=== PATIENT | female | born 1960 | race Caucasian/White ===

== ENCOUNTER → 2024-02-07 18:02 | Outpatient (ROUT) | payer OTHER, SELFPAY | PROVIDERS: Visit Provider Dermatology | DX: L08.9 Local infection of the skin and subcutaneous tissue, unspecified (principal) | CPT/HCPCS: 87070; 87075; 87077; 87147; 87186; 87205 ==

== ENCOUNTER 2024-02-23 15:07 | Inpatient (IN) | payer OTHER, SELFPAY ==
[2024-02-23] VITALS (28 sets, daily range): BP systolic 134–201; BP diastolic 65–105; PULSE 96–111; RESP 10–39; TEMP 31–36.8; O2SAT 87–98; BMI 51.5
--- NOTE | 2024-02-23 15:32 | DI.RAD.S_ITS ---
PROCEDURE: XR CHEST 1V INDICATIONS: Shortness of breath TECHNIQUE: One view of the chest was acquired. COMPARISON: None. FINDINGS: Surgical changes and devices: Partially visualized ACDF. Lungs and pleura: Prominent interstitial markings in the mid and lower lung queen. No significant pleural effusion or pneumothorax Mediastinum: Mediastinal contours appear normal. Heart size is enlarged. Bones and chest wall: No suspicious bony lesions. Overlying soft tissues appear unremarkable. IMPRESSION: Cardiomegaly and prominent interstitial markings, concerning for pulmonary edema. Dictated by: Anant Richard M.D. on 02/23/2024 at 15:10 Approved by: Anant Richard M.D. on 02/23/2024 at 15:11
--- NOTE | 2024-02-23 15:37 | EKG_ITS ---
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
[2024-02-23 15:52] LABS: Add Manual Diff / Slide Review NO; Basophils Absolute Auto 0 /uL (0-100); Basophils Percent Auto 0.2 % (0-2); Eosinophils Absolute Auto 0 /uL (0-450); Eosinophils Percent Auto 0.5 % (2-4); Hematocrit 34.2 % (36-46); Hemoglobin 11.5 g/dL (12.0-16.0); Lymphocytes Absolute Auto 1400 /uL (1100-4500); Lymphocytes Percent Auto 14.9 % (25-40); Mean Corpuscular HGB Conc 33.5 % (30-36); Mean Corpuscular Hemoglobin 30.6 PG (26-34); Mean Corpuscular Volume 91.4 fL (80-100); Monocytes Absolute Auto 600 /uL (0-900); Monocytes Percent Auto 6.1 % (3-14); Neutrophils Absolute Auto 7400 /uL (1500-7000); Neutrophils Percent Auto 78.3 % (50-75); Platelet Count 288 X10^3/uL (150-400); Red Blood Cell Count 3.74 X10^6/uL (4.0-5.2); Red Cell Distribution Width 14.3 % (11.6-14.8); White Blood Cell Count 9.4 X10^3/uL (4.5-11.0)
--- NOTE | 2024-02-23 15:57 | PC.NURSE ---
Patient pulse ox dropped to 87% on room air. This RN went to patient room and patient was resting with eyes closed. Patient states that they do have sleep apnea. This RN placed nasal cannula on patient and started oxygen at 2L. Provider informed.
[2024-02-23 15:58] LABS: INR 1.6 (0.9-1.3); Prothrombin Time 18.6 SECONDS (9.4-12.5)
[2024-02-23 16:02] LABS: Lactate (Lactic Acid) 2.4 mmol/L (0.7-2.1)
[2024-02-23 16:18] LABS: Alanine Aminotransferase 21 IU/L (<35); Albumin 3.7 g/dL (3.5-5.0); Albumin Globulin Ratio 1.4 (1.0-2.8); Alkaline Phosphatase 91 U/L (38-126); Aspartate Aminotransferase 28 IU/L (14-36); BUN Creatinine Ratio 20.5 (6-22); Bilirubin Total 1.1 mg/dL (0.2-1.3); Blood Urea Nitrogen 26 mg/dL (7-17); Calcium 8.2 mg/dL (8.4-10.2); Carbon Dioxide 28 mmol/L (22-32); Chloride 105 mmol/L (98-107); Estimated Glomerular Filt Rate 48 mL/min (>60); Globulin 2.7 g/dL (1.7-4.1); Glucose 149 mg/dL (80-110); HEMOLYSIS < 15 (0-50); Potassium 4.7 mmol/L (3.4-5.1); Sodium 139 mmol/L (137-145); Total Protein 6.4 g/dL (6.3-8.2)
[2024-02-23 16:30] LABS: NT-proBNP (BNP-Adult 18+) 5330 pg/mL (<125); Troponin I < 0.012 ng/mL (0.01-0.034)
[2024-02-23] MEDS: NITROGLYCERIN 0.4 MG SL TAB SL (16:49)
[2024-02-23] MEDS: FUROSEMIDE 60 MG in SODIUM CHLORIDE 0.9% 50 ML 112 MG IV (16:50)
--- NOTE | 2024-02-23 17:12 | ED.GENADULT ---
HPI - General Adult General Chief complaint: Shortness of Breath/Dyspnea Stated complaint: shortness of breath Time Seen by Provider: 02/23/24 16:31 Source: patient, RN notes reviewed and old records reviewed Mode of arrival: Wheelchair Limitations: no limitations History of Present Illness HPI narrative: 63-year-old with history of atrial fibrillation, prior cardioversion and ablation, CHF, hypertension, dyslipidemia who presents with increasing shortness of breath starting Sunday night in his last few days. Patient states it significantly worsened over the past 24 hours. She denies any chest pain currently but states she would some epigastric discomfort earlier. Denied any radiation to neck back abdomen or elsewhere. Denies fevers. Has not had a cough which is chronic and nonproductive. No cold cough or congestion symptoms otherwise. No nausea or vomiting no issues with bowel movements. Patient has history of chronic edema and skin infections with MRSA. She states she has had persistent edema in her lower extremities. She is currently on an oral antibiotic for MRSA. Patient states she has had prior cardioversions and ablations. She has been in atrial fibrillation for the past year or more. She states she was on flecainide but had difficulty with breathing and stopped it. She is currently taking atenolol, spironolactone, magnesium and potassium, torsemide, losartan, atorvastatin, daily medication for incontinence and omeprazole. States only surgeries were cardiac ablation she denies any cardiac stents or other cardiac interventions. States prior knee surgery in her 20s. Has not allergy to narcotics does not tolerate them. Patient states no tobacco, no regular alcohol, no recreational drugs. Related Data Home Medications Medication Instructions Recorded Confirmed atenolol 50 mg tablet 50 mg PO DAILY 02/23/24 02/23/24 atorvastatin 40 mg tablet 40 mg PO DAILY 02/23/24 02/23/24 dabigatran etexilate 150 mg 150 mg PO BID 02/23/24 02/23/24 capsule (Pradaxa) losartan 50 mg tablet 50 mg PO BID 02/23/24 02/23/24 potassium chloride 10 mEq 10 meq PO 4XD 02/23/24 02/23/24 tablet,extended release spironolactone 50 mg tablet 25 mg PO DAILY 02/23/24 02/23/24 torsemide 20 mg tablet See Rx Instructions .Route .COMPLEX 02/23/24 02/23/24 Allergies Allergy/AdvReac Type Severity Reaction Status Date / Time flecainide Allergy Difficulty Verified 02/23/24 15:45 Breathing morphine Allergy Redness of Verified 02/23/24 15:45 Skin oxycodone Allergy Redness of Verified 02/23/24 15:45 Skin XU Inhibitors AdvReac Cough Verified 02/23/24 15:45 adhesive AdvReac Redness of Verified 02/23/24 15:45 Skin Review of Systems Review of Systems ROS Unobtainable: All systems reviewed & are unremarkable except as noted in HPI and below Patient History Social History Smoking Status: Never smoker Smoking Status: Never smoker alcohol intake frequency: other Substance Use Type: does not use Exam Narrative Exam Narrative: GENERAL: Alert and oriented x three, obese female in moderate distress. HEENT: Head normocephalic, atraumatic, EOMI, pupils reactive, face symmetric, moist mucous membranes NECK: Supple, full range of motion CARDIOVASCULAR: Irregularly irregular heart rate between 90s and 100 rate and rhythm without murmurs, rubs or gallops. Positive for JVD. Positive for 2+ edema bilateral lower extremities. Patient appears to have some chronic venous stasis changes bilaterally. Some mild erythema bilateral anterior shins. RESPIRATORY: Breath sounds equal bilaterally, crackles bilateral bases, no rhonchi, patient does have some tachypnea. Mild accessory use no subcostal or intercostal retractions. Patient's speaks in 3-5 words. ABDOMEN: Soft, nontender. Normoactive bowel sounds all 4 quadrants. No guarding or rebound, rigidity, no mass : No CVA tenderness EXTREMITIES: Normal range of motion. Neurovascularly intact NEUROLOGICAL: Cranial nerves II through XII grossly intact. Moving all extremities SKIN: Warm, dry, no petechiae, no rashes or lesions. Initial Vital Signs Initial Vital Signs: Vital Signs Temperature 98 F 02/23/24 15:32 Pulse Rate 111 H 02/23/24 15:32 Respiratory Rate 18 02/23/24 15:32 Blood Pressure 191/92 H 02/23/24 15:32 Pulse Oximetry 94 02/23/24 15:32 Oxygen Delivery Method Room Air 02/23/24 15:32 Course Orders Ordered: ED Orders 02/23/24 15:32 XR chest 1V Stat EKG-12 Lead Stat Measure peak expiratory flow ONCE RT Consult Eval and Treat NOW 02/23/24 15:40 Complete Blood Count AUTO DIFF Stat Comprehensive Metabolic Panel Stat Lactate (Lactic Acid) Stat NT-proBNP (BNP-Adult 18+) Stat Prothrombin Time INR Stat Troponin I Stat Discontinued Medications Furosemide 60 mg/ Sodium (Chloride) 56 mls @ 112 mls/hr IV NOW ONE Stop: 02/23/24 16:33 Last Infusion: 02/23/24 17:38 Dose: Infused Documented By: Admin: 02/23/24 16:50 Dose: 112 mls/hr Documented By: RB Nitroglycerin (Nitroglycerin 0.4 Mg Sl Tab) 0.4 mg SL NOW ONE Stop: 02/23/24 16:33 Last Admin: 02/23/24 16:49 Dose: 0.4 mg Documented By: RB Vital Signs Vital signs: Vital Signs - 8 hr 02/23/24 15:32 02/23/24 15:40 02/23/24 15:45 Temperature 98 F Pulse Rate 111 H 97 H 98 H Respiratory Rate 18 34 H 31 H Blood Pressure 191/92 H Pulse Oximetry 94 93 94 Oxygen Delivery Method Room Air Oxygen Flow Rate Fraction of Inspired Oxygen 02/23/24 15:50 02/23/24 15:55 02/23/24 16:00 Temperature Pulse Rate 99 H 97 H 98 H Respiratory Rate 31 H 26 H 30 H Blood Pressure Pulse Oximetry 91 87 L 96 Oxygen Delivery Method Room Air Nasal Cannula Oxygen Flow Rate 2 Fraction of Inspired Oxygen 02/23/24 16:01 02/23/24 16:01 02/23/24 16:15 Temperature Pulse Rate 99 H 100 H Respiratory Rate 29 H 28 H Blood Pressure 201/81 H Pulse Oximetry 96 95 Oxygen Delivery Method Nasal Cannula Nasal Cannula Oxygen Flow Rate 2 2 Fraction of Inspired Oxygen 02/23/24 16:16 02/23/24 16:16 02/23/24 16:30 Temperature Pulse Rate 99 H 99 H Respiratory Rate 27 H 28 H Blood Pressure 196/79 H Pulse Oximetry 96 96 Oxygen Delivery Method Nasal Cannula Nasal Cannula Oxygen Flow Rate 2 Fraction of Inspired Oxygen 02/23/24 16:30 02/23/24 16:45 02/23/24 16:45 Temperature Pulse Rate 103 H Respiratory Rate 28 H Blood Pressure 190/78 H 178/83 H Pulse Oximetry 95 Oxygen Delivery Method Nasal Cannula Oxygen Flow Rate 2 Fraction of Inspired Oxygen 02/23/24 16:49 02/23/24 17:00 02/23/24 17:01 Temperature Pulse Rate 99 H 105 H Respiratory Rate 39 H Blood Pressure 178/83 H 180/70 H Pulse Oximetry 91 Oxygen Delivery Method Nasal Cannula Oxygen Flow Rate 2 Fraction of Inspired Oxygen 02/23/24 17:01 02/23/24 17:20 Temperature Pulse Rate 105 H Respiratory Rate 31 H Blood Pressure 174/80 H Pulse Oximetry 93 Oxygen Delivery Method Nasal Cannula Oxygen Flow Rate 2 Fraction of Inspired Oxygen 25 Medical Decision Making Lab Data 02/23/24 15:40 02/23/24 15:40 Labs: Lab Results 02/23/24 02/23/24 Range/Units 15:40 17:35 WBC 9.4 (4.5-11.0) X10^3/uL RBC 3.74 L (4.0-5.2) X10^6/uL Hgb 11.5 L (12.0-16.0) g/dL Hct 34.2 L (36-46) % MCV 91.4 (80-100) fL MCH 30.6 (26-34) PG MCHC 33.5 (30-36) % RDW 14.3 (11.6-14.8) % Plt Count 288 (150-400) X10^3/uL Neut % (Auto) 78.3 H (50-75) % Lymph % (Auto) 14.9 L (25-40) % [place] % (Auto) 6.1 (3-14) % Eos % (Auto) 0.5 L (2-4) % Baso % (Auto) 0.2 (0-2) % Neut # (Auto) 7400 H (9420-6966) /uL Lymph # (Auto) 1400 (5261-1148) /uL [place] # (Auto) 600 (0-900) /uL Eos # (Auto) 0 (0-450) /uL Baso # (Auto) 0 (0-100) /uL PT 18.6 H (9.4-12.5) SECONDS INR 1.6 H (0.9-1.3) Sodium 139 (137-145) mmol/L Potassium 4.7 (3.4-5.1) mmol/L Chloride 105 (98-107) mmol/L Carbon Dioxide 28 (22-32) mmol/L BUN 26 H (7-17) mg/dL Creatinine 1.27 H (0.52-1.04) mg/dL Estimated GFR 48 L (>60) mL/min BUN/Creatinine Ratio 20.5 (6-22) Glucose 149 H (80-110) mg/dL Lactate 2.4 H 1.8 (0.7-2.1) mmol/L Calcium 8.2 L (8.4-10.2) mg/dL Total Bilirubin 1.1 (0.2-1.3) mg/dL AST 28 (14-36) IU/L ALT 21 (<35) IU/L Alkaline Phosphatase 91 (38-126) U/L Troponin I < 0.012 (0.01-0.034) ng/mL NT-Pro-B Natriuret Pep 5330 H (<125) pg/mL Total Protein 6.4 (6.3-8.2) g/dL Albumin 3.7 (3.5-5.0) g/dL Globulin 2.7 (1.7-4.1) g/dL Albumin/Globulin Ratio 1.4 (1.0-2.8) Imaging Data Chest x-ray: Radiologist's Impression: Close Chest X-Ray (Signed) Anant Richard - 02/23/24 [place] [address] XRay Report Signed Patient: ALE HUERTAS MR#: [id number] : 1960 Acct:[id number] Age/Sex: 63 / F Date of Service: 02/23/24 Loc: ED Accession Number: [id number] Procedure: XR chest 1V Ordering Provider: Emily Robertson D.O. PROCEDURE: XR CHEST 1V INDICATIONS: Shortness of breath TECHNIQUE: One view of the chest was acquired. COMPARISON: None. FINDINGS: Surgical changes and devices: Partially visualized ACDF. Lungs and pleura: Prominent interstitial markings in the mid and lower lung queen. No significant pleural effusion or pneumothorax Mediastinum: Mediastinal contours appear normal. Heart size is enlarged. Bones and chest wall: No suspicious bony lesions. Overlying soft tissues appear unremarkable. IMPRESSION: Cardiomegaly and prominent interstitial markings, concerning for pulmonary edema. Dictated by: Anant Richard M.D. on 02/23/2024 at 15:10 Approved by: Anant Richard M.D. on 02/23/2024 at 15:11 ECG Data Attestation: I personally reviewed and interpreted this ECG as follows: Prior ECG tracings: not available for review Interpretation: AFib, rate of 99, QRS is 70 QTC 441. No prior for comparison. MDM Narrative Medical decision making narrative: 63-year-old female history atrial fibrillation, CHF patient used to be on flecainide but no longer has been in chronic atrial fibrillation. Patient appears to be clinically in CHF. She is hypertensive, AFib RVR with rate 90s to 100, tachypneic requiring 2 L O2 which is new. Patient states cardioversions in the longer work she is chronically in atrial fibrillation. Labs show white count of 9.4 hemoglobin of 11, platelets of 288, INR is 1.6, creatinine is 1.27 BUN 26 with otherwise appropriate electrolytes with a potassium of 4.7 sodium 139. Troponins less than 0.012, BNP is 5330. Chest x-ray shows cardiomegaly, prominent interstitial markings concerning for pulmonary edema. No significant pleural effusion or pneumothorax. EKG shows atrial fibrillation with rate in the 90s Patient received Lasix, sublingual nitro, work of breathing was moderate but discussed patient does use a CPAP normally and we will put her on BiPAP to see if this improves symptoms. Patient states she has no interest in cardioversions unless unstable. She is full code. Patient's follows with primary care outside facility follows with Cardiology through [facility]. Patient feels much improved on BiPAP she states her work of breathing feels much better. Spoke with Dr. Perry, hospitalist who accepts plan for ICU as patient is on BiPAP. Discharge Plan Departure Patient Disposition: Admitted as Observation Clinical Impression: Acute exacerbation of chronic heart failure, Atrial fibrillation Admit Date/Time: 02/23/24 17:46 Admit Provider: Joni Perry V
[2024-02-23 17:24] LABS: Reflexed Lactate in 2 Hours Y
[2024-02-23 17:58] LABS: Lactate 2HR (Lactic Acid Rflx) 1.8 mmol/L (0.7-2.1)
--- NOTE | 2024-02-23 18:24 | PM.HP.1 ---
History of Present Illness History of Present Illness Date Patient Seen: 02/23/24 Time Patient Seen: 17:30 Date of Onset of Symptoms: 02/22/24 Chief complaint: shortness of breath Narrative: 63-year-old woman history of chronic atrial fibrillation, status post prior cardioversion and ablation, congestive heart failure, hypertension hyperlipidemia presented with shortness of breath for the past 3 nights with associated lower extremity edema and orthopnea. She suspects dietary indiscretion around the 20 of February hol. She has had a recent MRSA infection for which she is taking an oral antibiotic. She denies chest pain, palpitations, lightheadedness, or syncope. She was evaluated in the emergency department and found to have clinical radiographic and laboratory findings consistent with congestive heart failure, with an oxygen saturation of 85% and labored breathing. She was placed on BiPAP and administer furosemide 60 mg intravenously with a brisk diuresis, and feeling significantly better. She is admitted for further management and evaluation [facility] Medical History (Updated 02/23/24 @ 18:33 by Joni Perry MD) Acute hypoxemic respiratory failure ISAURA (acute kidney injury) Obstructive sleep apnea Mixed hyperlipidemia Essential hypertension Chronic anticoagulation Chronic atrial fibrillation Social History Smoking Status: Never smoker Meds Home Medications and Allergies Home Medications Medication Instructions Recorded Confirmed Type atenolol 50 mg tablet 50 mg PO DAILY 02/23/24 02/23/24 History atorvastatin 40 mg tablet 40 mg PO DAILY 02/23/24 02/23/24 History dabigatran etexilate 150 mg 150 mg PO BID 02/23/24 02/23/24 History capsule (Pradaxa) losartan 50 mg tablet 50 mg PO BID 02/23/24 02/23/24 History potassium chloride 10 mEq 10 meq PO 4XD 02/23/24 02/23/24 History tablet,extended release spironolactone 50 mg tablet 25 mg PO DAILY 02/23/24 02/23/24 History torsemide 20 mg tablet See Rx Instructions .Route .COMPLEX 02/23/24 02/23/24 History Allergies Allergy/AdvReac Type Severity Reaction Status Date / Time flecainide Allergy Difficulty Verified 02/23/24 15:45 Breathing morphine Allergy Redness of Verified 02/23/24 15:45 Skin oxycodone Allergy Redness of Verified 02/23/24 15:45 Skin XU Inhibitors AdvReac Cough Verified 02/23/24 15:45 adhesive AdvReac Redness of Verified 02/23/24 15:45 Skin Review of Systems Review of Systems ROS: Yes All systems reviewed with the patient and are negative except as otherwise documented Exam Vital Signs (past 8 hours): - 02/23/24 15:32 02/23/24 15:40 02/23/24 15:45 Temperature 98 F Pulse Rate 111 H 97 H 98 H Respiratory Rate 18 34 H 31 H Blood Pressure 191/92 H Pulse Oximetry 94 93 94 Oxygen Delivery Method Room Air Oxygen Flow Rate Fraction of Inspired Oxygen 02/23/24 15:50 02/23/24 15:55 02/23/24 16:00 Temperature Pulse Rate 99 H 97 H 98 H Respiratory Rate 31 H 26 H 30 H Blood Pressure Pulse Oximetry 91 87 L 96 Oxygen Delivery Method Room Air Nasal Cannula Oxygen Flow Rate 2 Fraction of Inspired Oxygen 02/23/24 16:01 02/23/24 16:01 02/23/24 16:15 Temperature Pulse Rate 99 H 100 H Respiratory Rate 29 H 28 H Blood Pressure 201/81 H Pulse Oximetry 96 95 Oxygen Delivery Method Nasal Cannula Nasal Cannula Oxygen Flow Rate 2 2 Fraction of Inspired Oxygen 02/23/24 16:16 02/23/24 16:16 02/23/24 16:30 Temperature Pulse Rate 99 H 99 H Respiratory Rate 27 H 28 H Blood Pressure 196/79 H Pulse Oximetry 96 96 Oxygen Delivery Method Nasal Cannula Nasal Cannula Oxygen Flow Rate 2 Fraction of Inspired Oxygen 02/23/24 16:30 02/23/24 16:45 02/23/24 16:45 Temperature Pulse Rate 103 H Respiratory Rate 28 H Blood Pressure 190/78 H 178/83 H Pulse Oximetry 95 Oxygen Delivery Method Nasal Cannula Oxygen Flow Rate 2 Fraction of Inspired Oxygen 02/23/24 16:49 02/23/24 17:00 02/23/24 17:01 Temperature Pulse Rate 99 H 105 H Respiratory Rate 39 H Blood Pressure 178/83 H 180/70 H Pulse Oximetry 91 Oxygen Delivery Method Nasal Cannula Oxygen Flow Rate 2 Fraction of Inspired Oxygen 02/23/24 17:01 02/23/24 17:20 Temperature Pulse Rate 105 H Respiratory Rate 31 H Blood Pressure 174/80 H Pulse Oximetry 93 Oxygen Delivery Method Nasal Cannula Oxygen Flow Rate 2 Fraction of Inspired Oxygen 25 Fraction of Inspired Oxygen 25 Oxygen Delivery Method Nasal Cannula Oxygen Flow Rate 2 Narrative Exam Narrative: GENERAL: This is a well-nourished, well-developed patient, in moderate respiratory distress, wearing BiPAP mask, oxygen saturation 94% HEAD: Atraumatic. Normocephalic. No temporal or scalp tenderness. EYES: Pupils equal round and reactive. Extraocular motions intact. No scleral icterus. No injection or drainage. ENT: Mucous membranes pink and moist. NECK: Trachea midline. No JVD, bruits or lymphadenopathy. Supple, nontender, no meningeal signs. CARDIOVASCULAR: Irregularly irregular rhythm without murmurs, gallops, or rubs. RESPIRATORY: Labored breathing, diffuse crackles bilateral lower lobes to mid lung queen. GASTROINTESTINAL: Abdomen soft, non-tender, nondistended. EXTREMITIES: 2+ edema NEUROLOGIC: Alert, oriented, speech fluent, full upper and lower motor strength, no focal deficits evident. DERMATOLOGIC: No rashes or skin lesions. Objective ECG Impression: Atrial fibrillation at 99 beats per minute, low-voltage QRS, no acute ischemic changes Imaging Chest x-ray: Radiologist's impression: Cardiomegaly and prominent interstitial markings, concerning for pulmonary edema. Labs 02/23/24 15:40 02/23/24 15:40 Labs: Laboratory Results - last 24 hr 02/23/24 02/23/24 15:40 17:35 WBC 9.4 RBC 3.74 L Hgb 11.5 L Hct 34.2 L MCV 91.4 MCH 30.6 MCHC 33.5 RDW 14.3 Plt Count 288 Neut % (Auto) 78.3 H Lymph % (Auto) 14.9 L [place] % (Auto) 6.1 Eos % (Auto) 0.5 L Baso % (Auto) 0.2 Neut # (Auto) 7400 H Lymph # (Auto) 1400 [place] # (Auto) 600 Eos # (Auto) 0 Baso # (Auto) 0 PT 18.6 H INR 1.6 H Sodium 139 Potassium 4.7 Chloride 105 Carbon Dioxide 28 BUN 26 H Creatinine 1.27 H Estimated GFR 48 L BUN/Creatinine Ratio 20.5 Glucose 149 H Lactate 2.4 H 1.8 Calcium 8.2 L Total Bilirubin 1.1 AST 28 ALT 21 Alkaline Phosphatase 91 Troponin I < 0.012 NT-Pro-B Natriuret Pep 5330 H Total Protein 6.4 Albumin 3.7 Globulin 2.7 Albumin/Globulin Ratio 1.4 Assessment & Plan Assessment and plan (1) Acute exacerbation of chronic heart failure: Status: Acute (2) Acute hypoxemic respiratory failure: Status: Acute (3) Chronic atrial fibrillation: Status: Acute (4) Chronic anticoagulation: Status: Acute (5) ISAURA (acute kidney injury): Status: Acute (6) Essential hypertension: Status: Acute (7) Mixed hyperlipidemia: Status: Acute (8) Obstructive sleep apnea: Status: Acute Plan 63-year-old woman with chronic atrial fibrillation, congestive heart failure, hypertension, hyperlipidemia and sleep apnea presenting with acute onset congestive heart failure with acute hypoxic respiratory in the setting of recent dietary indiscretion and chronic peripheral edema requiring noninvasive BiPAP ventilator support. Plan: Admit to ICU Continue BiPAP Furosemide 40 mg IV every 8 hours Continue routine medications otherwise Echocardiogram Monitor serial cardiac enzymes Full code status. She states she wishes to avoid intubation. 60 minutes of critical care time is spent Time-Based Coding :: [TOTAL MINUTES] spent with patient and on the chart (including review of chart, obtaining history, exam, reviewing outside data, placing orders, documenting exam and treatment plan, and counseling patient) on [DATE]. PROFEE Charge Codes Critical Care: 93677
--- NOTE | 2024-02-23 18:33 | DI.ECHO.S_ITS ---
[place] [facility]---------+ [facility] : : [address] : : [place] : : [id number] : : Phone: [phone] Echocardiogram Report + + :Name: ALE HUERTAS Study Date: 02/24/2024 Height: 64 in : :[facility] ReadingLocation: Weight: 303 lb : : Gender: Female BSA: 2.3 m2 : :: 1960 Age: 63 yrs BP: 176/92 mmHg: :Reason For Study: CONGESTIVE HEART FAILURE : :Ordering Physician: MOISES, : :WEST Performed By: Teresita Beverly : :Referring: WEST DE LEON : + + Interpretation Summary 1) Normal left ventricular thickness, size, wall motion, and systolic function (EF 60-65%). 2) Normal right ventricular size and function. 3) No significant valvular abnormalities. 4) No prior Echo available for comparison. Procedure: A two-dimensional transthoracic echocardiogram with color flow and Doppler was performed. The study quality was technically adequate. There is no prior echocardiogram noted for this patient. The patient was in atrial fibrillation with heart rates between 87-104 bpm during the exam. Left Ventricle: The left ventricle is normal in size and wall thickness. The ejection fraction is estimated to be 60-65%. Left ventricular systolic function appears normal without focal wall motion abnormalities. Diastolic function could not be accurately assessed due to atrial fibrillation. Right Ventricle: The right ventricle is normal in size and function. Atria: The left atrial size is normal. Right atrial size is normal. There is no Doppler evidence for an interatrial shunt. Mitral Valve: The mitral valve is normal in structure and function. There is trace mitral regurgitation. Aortic Valve: The aortic valve is trileaflet. The aortic valve opens well. There is no aortic valve stenosis. No aortic regurgitation is present. Tricuspid Valve: The tricuspid valve is normal in structure and function. There is mild tricuspid regurgitation. The right ventricular systolic pressure is estimated to be at least 41 mmHg based on an estimated right atrial pressure of 3 mm Hg. Pulmonic Valve: The pulmonic valve is not well seen, but is grossly normal. There is no pulmonic valvular regurgitation. Great Vessels: The aortic root is normal size. The dimensions of the ascending aorta are normal. The IVC is of normal diameter and collapses greater than 50% with a sniff. This suggests a low right atrial pressure of 3 mm Hg. Pericardium/ Pleura There is no pericardial effusion. There is no pleural effusion. MMode/2D Measurements & Calculations LVIDd: 4.1 cm LVOT diam: 2.0 cm LVIDs: 2.8 cm Ao root diam: 2.4 cm FS: 32.7 % asc Aorta Diam: 3.3 cm IVSd: 0.91 cm LVPWd: 0.88 cm LV burgos. diameter/BSA (cm/m^2): 1.8 LV sys. diameter/BSA (cm/m^2): 1.2 LA A2 area: 16.8 cm2 RA long axis: 5.5 cm LA A4 area: 19.3 cm2 RA area: 20.4 cm2 LA length (vol): 5.7 cm RA vol: 64.5 ml LA vol: 48.5 ml RA : 27.6 ml/m2 LA vol index: 20.8 ml/m2 IVC diam: 1.5 cm RVD1 (basal): 3.8 cm TAPSE: 2.3 cm Doppler Measurements & Calculations Ao V2 max: 173.1 cm/sec LVOT Max Calixto: 103.5 cm/sec Ao V2 mean: 118.7 cm/sec LV V1 max P.3 mmHg Ao max P.0 mmHg LV V1 VTI: 17.6 cm Ao mean P.3 mmHg MARY(I,D): 1.8 cm2 Ao V2 VTI: 29.4 cm MARY(V,D): 1.8 cm2 sev ratio: 0.60 MARY indexed to BSA (cm^2/m^2): 0.78 MV E max calixto: 116.2 cm/sec TR max calixto: 310.0 cm/sec MV A max calixto: 0.83 cm/sec TR max P.4 mmHg MV E/A: 140.4 PA V2 max: 109.5 cm/sec Med Peak E' Calixto: 7.6 cm/sec PA V2 mean: 71.5 cm/sec E/E' med: 15.3 PA mean P.3 mmHg Lat Peak E' Calixto: 6.9 cm/sec PA pr(Accel): 25.9 mmHg E/E' lat: 16.8 E/e' average: 16.0 MV dec time: 0.23 sec SV(ALEYDA): 53.4 ml Reading Physician:12:08 PM
[2024-02-23 21:09] LABS: MRSA (Nasal) PCR DETECTED (Not Detect)
[2024-02-23] MEDS: POTASSIUM CHLORIDE 10 MEQ TAB PO (21:24)
[2024-02-23] MEDS: LOSARTAN 50 MG TABLET PO (21:24)
[2024-02-23] MEDS: FUROSEMIDE 40 MG/4 ML VIAL IV (21:24)
[2024-02-23] MEDS: methocarbamoL 500 MG TABLET PO (22:53)
[2024-02-24] VITALS (30 sets, daily range): BP systolic 132–202; BP diastolic 69–92; PULSE 90–109; RESP 18–33; TEMP 36.1–36.7; O2SAT 90–98; BMI 51.5
[2024-02-24] MEDS: FUROSEMIDE 40 MG/4 ML VIAL IV ×3 (04:37→20:58)
--- NOTE | 2024-02-24 06:14 | PC.NURSE ---
library clerical assistant RN note pt c/o of leg spasms overnight, robaxin ordered with relief, lasix as ordered, voiding large amts of clear yellow urine overnight, pt attempted to use bipap when sleeping but then took it off stating it made her feel smothered, 2L NC applied instead, O2 sats >92%
--- NOTE | 2024-02-24 06:25 | RT ---
pt took BiPAP off about midnight 02/24/24 is on 3L 95% and comfortable
[2024-02-24 06:29] LABS: Add Manual Diff / Slide Review NO; Basophils Absolute Auto 0 /uL (0-100); Basophils Percent Auto 0.5 % (0-2); Eosinophils Absolute Auto 100 /uL (0-450); Eosinophils Percent Auto 1.2 % (2-4); Hematocrit 33.4 % (36-46); Hemoglobin 11.4 g/dL (12.0-16.0); Lymphocytes Absolute Auto 1900 /uL (1100-4500); Lymphocytes Percent Auto 22.1 % (25-40); Mean Corpuscular HGB Conc 34.2 % (30-36); Mean Corpuscular Volume 90.7 fL (80-100); Monocytes Absolute Auto 700 /uL (0-900); Monocytes Percent Auto 7.8 % (3-14); Neutrophils Absolute Auto 5900 /uL (1500-7000); Neutrophils Percent Auto 68.4 % (50-75); Platelet Count 284 X10^3/uL (150-400); Red Blood Cell Count 3.69 X10^6/uL (4.0-5.2); White Blood Cell Count 8.6 X10^3/uL (4.5-11.0)
[2024-02-24 06:33] LABS: Blood Urea Nitrogen 21 mg/dL (7-17); Calcium 8.1 mg/dL (8.4-10.2); Carbon Dioxide 29 mmol/L (22-32); Chloride 99 mmol/L (98-107); Estimated Glomerular Filt Rate 46 mL/min (>60); Glucose 131 mg/dL (80-110); HEMOLYSIS < 15 (0-50); Magnesium 1.5 mg/dL (1.6-2.3); Potassium 3.1 mmol/L (3.4-5.1); Sodium 136 mmol/L (137-145)
[2024-02-24 06:43] LABS: Troponin I 0.012 ng/mL (0.01-0.034)
--- NOTE | 2024-02-24 07:47 | P.PN_ITS ---
Subjective Subjective Date Patient Seen: 02/24/24 Time Patient Seen: 07:55 Interval history: The patient reports feeling significantly improved today. No chest pain or shortness of breath. She slept poorly, noting she normally uses CPAP at home at night. She experienced a net diuresis of 4200 mL since admission yesterday. Exam Vital Signs (past 8 hours): - 02/24/24 00:00 02/24/24 01:00 02/24/24 01:00 Temperature 97.5 F L Pulse Rate 109 H 109 H Respiratory Rate 30 H 33 H Blood Pressure 148/74 H 132/69 Pulse Oximetry 92 93 Oxygen Flow Rate 3 3 02/24/24 02:00 02/24/24 02:00 02/24/24 03:00 Temperature Pulse Rate 106 H Respiratory Rate 29 H Blood Pressure 141/87 H 148/82 H Pulse Oximetry 95 Oxygen Flow Rate 3 02/24/24 03:00 02/24/24 04:00 02/24/24 05:00 Temperature 97.0 F L Pulse Rate 105 H 99 H 101 H Respiratory Rate 30 H 26 H 26 H Blood Pressure 152/78 H Pulse Oximetry 95 96 95 Oxygen Flow Rate 3 3 02/24/24 05:00 02/24/24 06:00 02/24/24 06:00 Temperature Pulse Rate 100 H Respiratory Rate 24 Blood Pressure 152/89 H 152/86 H Pulse Oximetry 97 Oxygen Flow Rate 3 3 Fraction of Inspired Oxygen 25 Oxygen Delivery Method Nasal Cannula Oxygen Flow Rate 3 Narrative Exam Narrative: GENERAL: This is a well-nourished, well-developed patient, breathing comfortably, oxygen saturation 96% on 3 L nasal cannula oxygen EYES: Pupils equal round and reactive. Extraocular motions intact. No scleral icterus. No injection or drainage. ENT: Mucous membranes pink and moist. NECK: Supple, nontender, no meningeal signs. CARDIOVASCULAR: Irregularly irregular rhythm without murmurs, gallops, or rubs. RESPIRATORY: Bibasilar crackles bilaterally. GASTROINTESTINAL: Abdomen soft, non-tender, nondistended. EXTREMITIES: 1+ edema NEUROLOGIC: Alert, oriented, speech fluent, full upper and lower motor strength, no focal deficits evident. DERMATOLOGIC: No rashes or skin lesions. Objective Imaging Echo: Radiologist's impression: 1) Normal left ventricular thickness, size, wall motion, and systolic function (EF 60-65%). 2) Normal right ventricular size and function. 3) No significant valvular abnormalities. 4) No prior Echo available for comparison. Labs 02/24/24 05:15 02/24/24 05:15 Labs: Laboratory Results - last 24 hr 02/23/24 02/23/24 02/23/24 15:40 17:35 18:31 WBC 9.4 RBC 3.74 L Hgb 11.5 L Hct 34.2 L MCV 91.4 MCH 30.6 MCHC 33.5 RDW 14.3 Plt Count 288 Neut % (Auto) 78.3 H Lymph % (Auto) 14.9 L [place] % (Auto) 6.1 Eos % (Auto) 0.5 L Baso % (Auto) 0.2 Neut # (Auto) 7400 H Lymph # (Auto) 1400 [place] # (Auto) 600 Eos # (Auto) 0 Baso # (Auto) 0 PT 18.6 H INR 1.6 H Sodium 139 Potassium 4.7 Chloride 105 Carbon Dioxide 28 BUN 26 H Creatinine 1.27 H Estimated GFR 48 L BUN/Creatinine Ratio 20.5 Glucose 149 H Lactate 2.4 H 1.8 Calcium 8.2 L Magnesium Total Bilirubin 1.1 AST 28 ALT 21 Alkaline Phosphatase 91 Troponin I < 0.012 NT-Pro-B Natriuret Pep 5330 H Total Protein 6.4 Albumin 3.7 Globulin 2.7 Albumin/Globulin Ratio 1.4 Nasal Screen MRSA (PCR) Detected H 02/24/24 05:15 WBC 8.6 RBC 3.69 L Hgb 11.4 L Hct 33.4 L MCV 90.7 MCH 31.0 MCHC 34.2 RDW 14.0 Plt Count 284 Neut % (Auto) 68.4 Lymph % (Auto) 22.1 L [place] % (Auto) 7.8 Eos % (Auto) 1.2 L Baso % (Auto) 0.5 Neut # (Auto) 5900 Lymph # (Auto) 1900 [place] # (Auto) 700 Eos # (Auto) 100 Baso # (Auto) 0 PT INR Sodium 136 L Potassium 3.1 L D Chloride 99 Carbon Dioxide 29 BUN 21 H Creatinine 1.31 H Estimated GFR 46 L BUN/Creatinine Ratio 16.0 Glucose 131 H Lactate Calcium 8.1 L Magnesium 1.5 L Total Bilirubin AST ALT Alkaline Phosphatase Troponin I 0.012 NT-Pro-B Natriuret Pep Total Protein Albumin Globulin Albumin/Globulin Ratio Nasal Screen MRSA (PCR) [facility] Medical History (Updated 02/24/24 @ 13:32 by Joni Perry MD) Chronic diastolic (congestive) heart failure Acute hypoxemic respiratory failure ISAURA (acute kidney injury) Obstructive sleep apnea Mixed hyperlipidemia Essential hypertension Chronic anticoagulation Chronic atrial fibrillation Social History household members: spouse Smoking Status: Never smoker Assessment & Plan Assessment and plan (1) Acute exacerbation of chronic heart failure: Status: Acute (2) Chronic diastolic (congestive) heart failure: Status: Acute (3) Acute hypoxemic respiratory failure: Status: Acute (4) Chronic atrial fibrillation: Status: Acute (5) Chronic anticoagulation: Status: Acute (6) ISAURA (acute kidney injury): Status: Acute (7) Essential hypertension: Status: Acute (8) Mixed hyperlipidemia: Status: Acute (9) Obstructive sleep apnea: Status: Acute Plan 63-year-old woman with chronic atrial fibrillation, congestive heart failure, hypertension, hyperlipidemia and sleep apnea presenting with acute onset congestive heart failure with acute hypoxic respiratory in the setting of recent dietary indiscretion and chronic peripheral edema requiring noninvasive BiPAP ventilator support, much improved. Echocardiogram showed preserved ejection fraction with diastolic dysfunction without valvular heart disease. Much improved with excellent diuresis. Continue diuresis. Monitor electrolytes with possible discharge home tomorrow if doing well. Assessment & Plan narrative: Plan: Transfer to telemetry status Continue supplemental oxygen Furosemide 40 mg IV every 8 hours Replete potassium and magnesium Continue routine medications otherwise Full code status. She states she wishes to avoid intubation. Time-Based Coding :: [TOTAL MINUTES] spent with patient and on the chart (including review of chart, obtaining history, exam, reviewing outside data, placing orders, documenting exam and treatment plan, and counseling patient) on [DATE]. PROFEE Charge codes Subsequent inpatient/observation care: 88476
[2024-02-24] MEDS: LOSARTAN 50 MG TABLET PO ×2 (08:58→20:59)
[2024-02-24] MEDS: POTASSIUM CHLORIDE 10 MEQ TAB PO ×2 (08:59→09:09)
[2024-02-24] MEDS: ATORVASTATIN 20 MG TABLET 40 MG PO (08:59)
[2024-02-24] MEDS: atenoloL 50 MG TABLET PO (08:59)
[2024-02-24] MEDS: DABIGATRAN 75 MG CAPSULE 150 MG PO ×2 (09:00→20:58)
[2024-02-24] MEDS: SODIUM CHLORIDE 0.9% FLUSH 10 ML IV ×2 (09:00→21:06)
[2024-02-24] MEDS: SPIRONOLACTONE 25 MG TABLET PO (09:01)
[2024-02-24] MEDS: MAGNESIUM CHLORIDE 64 MG TABLET 128 MG PO (11:35)
[2024-02-24] MEDS: POTASSIUM CHLORIDE 20 MEQ TAB PO ×3 (12:24→20:58)
--- NOTE | 2024-02-24 15:57 | CM.DANOTE ---
Brief DCP assessment note pt is a 63yo F from [place] here with resp failure/ISAURA/CHF. PCP none listed. Payer [place] and self pay BOILER HELPER reviewed EMR. Per hospitalist, pt is the [employer]?? Per hospitalist, echo pending, potential dc tomorrow likely no CM needs. Per RN, pt sleeping heavily with CPAP machine during attempting assessment. This BOILER HELPER allowed pt to rest. P: anticipate home tomorrow. No identified barrriers to safe dc home at this time. Echo pending. CM team will follow as needed. KJ Geller Discharge Planning/Care Management CM Discharge Assessment Start: 02/24/24 15:56 Freq: Status: Active Protocol: Document 02/24/24 15:57 SL (Rec: 02/24/24 15:57 [id number]) Discharge Planning Assessment Assigned Sports Physiotherapist KJ Sawyer Advance Directives? No History Provided By Patient Prior Living Arrangements RV Household Members spouse Independent with ADL's Yes Is patient alert and oriented? Yes Comment CPAP Barriers to Discharge No Discharge Plan Home Referrals Initiated None needed Whiteboard Updated in Patient Room with No name and ext. # of Sports Physiotherapist Review Status In Process Please Provide Date Initial DC 02/24/24 Assessment Was Performed Next Review Type Continued Stay Review
[2024-02-25] VITALS: BP 125/77; PULSE 104; RESP 24; TEMP 36.8; O2SAT 96
[2024-02-25] MEDS: methocarbamoL 500 MG TABLET PO ×2 (02:01→07:05)
[2024-02-25] MEDS: FUROSEMIDE 40 MG/4 ML VIAL IV ×2 (03:55→13:21)
[2024-02-25 04:00] VITALS: BP 140/71; PULSE 99; RESP 17; TEMP 36.3; O2SAT 97
[2024-02-25 05:38] LABS: Add Manual Diff / Slide Review NO; Basophils Absolute Auto 100 /uL (0-100); Basophils Percent Auto 0.7 % (0-2); Eosinophils Absolute Auto 300 /uL (0-450); Eosinophils Percent Auto 3.4 % (2-4); Hemoglobin 12.8 g/dL (12.0-16.0); Lymphocytes Absolute Auto 2700 /uL (1100-4500); Lymphocytes Percent Auto 36.9 % (25-40); Mean Corpuscular HGB Conc 33.8 % (30-36); Mean Corpuscular Hemoglobin 30.4 PG (26-34); Monocytes Absolute Auto 800 /uL (0-900); Monocytes Percent Auto 10.2 % (3-14); Neutrophils Absolute Auto 3600 /uL (1500-7000); Neutrophils Percent Auto 48.8 % (50-75); Platelet Count 319 X10^3/uL (150-400); Red Blood Cell Count 4.22 X10^6/uL (4.0-5.2); White Blood Cell Count 7.4 X10^3/uL (4.5-11.0)
[2024-02-25 05:43] LABS: BUN Creatinine Ratio 16.1 (6-22); Blood Urea Nitrogen 22 mg/dL (7-17); Calcium 8.7 mg/dL (8.4-10.2); Carbon Dioxide 30 mmol/L (22-32); Chloride 99 mmol/L (98-107); Estimated Glomerular Filt Rate 44 mL/min (>60); Glucose 133 mg/dL (80-110); HEMOLYSIS < 15 (0-50); Magnesium 1.8 mg/dL (1.6-2.3); Potassium 3.5 mmol/L (3.4-5.1); Sodium 137 mmol/L (137-145)
[2024-02-25 09:49] VITALS: BP 158/75; PULSE 100; RESP 18; TEMP 37.1; O2SAT 97
[2024-02-25] MEDS: POTASSIUM CHLORIDE 20 MEQ TAB PO ×2 (10:16→13:21)
[2024-02-25] MEDS: atenoloL 50 MG TABLET PO (10:16)
[2024-02-25] MEDS: LOSARTAN 50 MG TABLET PO (10:16)
[2024-02-25] MEDS: SPIRONOLACTONE 25 MG TABLET PO (10:17)
[2024-02-25] MEDS: DABIGATRAN 75 MG CAPSULE 150 MG PO (10:17)
[2024-02-25] MEDS: ATORVASTATIN 20 MG TABLET 40 MG PO (10:17)
[2024-02-25] MEDS: SODIUM CHLORIDE 0.9% FLUSH 10 ML IV (10:18)
[2024-02-25 14:00] VITALS: O2SAT 92
[2024-02-25 15:00] VITALS: O2SAT 93
--- NOTE | 2024-02-25 15:36 | PM.DS.1 ---
History of Present Illness History of Present Illness Date Patient Seen: 02/25/24 Time Patient Seen: 15:37 Date of Onset of Symptoms: 02/22/24 Chief complaint: shortness of breath Narrative: Per admitting provider, 63-year-old woman history of chronic atrial fibrillation, status post prior cardioversion and ablation, congestive heart failure, hypertension hyperlipidemia presented with shortness of breath for the past 3 nights with associated lower extremity edema and orthopnea. She suspects dietary indiscretion around the 20 of February holiday. She has had a recent MRSA infection for which she is taking an oral antibiotic. She denies chest pain, palpitations, lightheadedness, or syncope. She was evaluated in the emergency department and found to have clinical radiographic and laboratory findings consistent with congestive heart failure, with an oxygen saturation of 85% and labored breathing. She was placed on BiPAP and administer furosemide 60 mg intravenously with a brisk diuresis, and feeling significantly better. She is admitted for further management and evaluation Discharge Providers Provider Date of admission: 02/23/24 17:46 Discharge Date: 02/25/24 Primary care physician: Shelby Benítez MD Consults: 02/23/24 18:21 Consult to Discharge Planning Routine Comment: Discharge provider: Cheo Elder DO Summary Hospital Course Discharge Diagnosis: (1) Acute exacerbation of chronic heart failure: Status: Acute (2) Chronic diastolic (congestive) heart failure: Status: Acute (3) Acute hypoxemic respiratory failure: Status: Acute (4) Chronic atrial fibrillation: Status: Acute (5) Chronic anticoagulation: Status: Acute (6) elevated creatinie, probable CKD (7) Essential hypertension: Status: Acute (8) Mixed hyperlipidemia: Status: Acute (9) Obstructive sleep apnea: Status: Acute Hospital Course: 63-year-old woman with chronic atrial fibrillation, congestive heart failure, hypertension, hyperlipidemia and sleep apnea presenting with acute onset congestive heart failure with acute hypoxic respiratory in the setting of recent dietary indiscretion and chronic peripheral edema requiring noninvasive BiPAP ventilator support. Echocardiogram showed preserved ejection fraction with diastolic dysfunction without valvular heart disease. She improved markedly with diuresis and at the time of discharge her symptoms had resolved and she was no longer requiring supplemental oxygen. No changes to her home medications were recommended at the time of discharge, and she should resume previous torsemide home dosing. Cr. remained stable around 1.3, which may represent CKD stage III. Recommend continued monitoring with primary care provider as an outpatient. Time Spent with Patient Time spent: Less than 30 minutes Exam Vital Signs (past 8 hours): - 02/25/24 09:49 02/25/24 10:00 Temperature 98.7 F Pulse Rate 100 H Respiratory Rate 18 Blood Pressure 158/75 H Pulse Oximetry 97 Oxygen Delivery Method Nasal Cannula Oxygen Flow Rate 1 Fraction of Inspired Oxygen 28 SaO2/FiO2 Ratio 342 Oxygen Delivery Method Nasal Cannula Oxygen Flow Rate 1 Narrative Exam Narrative: GENERAL: This is a well-nourished, well-developed patient, breathing comfortably, oxygen saturation 96% on 3 L nasal cannula oxygen EYES: Pupils equal round and reactive. Extraocular motions intact. No scleral icterus. No injection or drainage. ENT: Mucous membranes pink and moist. NECK: Supple, nontender, no meningeal signs. CARDIOVASCULAR: Irregularly irregular rhythm without murmurs, gallops, or rubs. RESPIRATORY: Bibasilar crackles bilaterally. GASTROINTESTINAL: Abdomen soft, non-tender, nondistended. EXTREMITIES: trace edema NEUROLOGIC: Alert, oriented, speech fluent, full upper and lower motor strength, no focal deficits evident. DERMATOLOGIC: No rashes or skin lesions. Objective Labs 02/25/24 04:20 02/25/24 04:20 Labs: Laboratory Results - last 24 hr 02/25/24 04:20 WBC 7.4 RBC 4.22 Hgb 12.8 Hct 38.0 MCV 90.0 MCH 30.4 MCHC 33.8 RDW 14.0 Plt Count 319 Neut % (Auto) 48.8 L Lymph % (Auto) 36.9 [place] % (Auto) 10.2 Eos % (Auto) 3.4 Baso % (Auto) 0.7 Neut # (Auto) 3600 Lymph # (Auto) 2700 [place] # (Auto) 800 Eos # (Auto) 300 Baso # (Auto) 100 Sodium 137 Potassium 3.5 Chloride 99 Carbon Dioxide 30 BUN 22 H Creatinine 1.37 H Estimated GFR 44 L BUN/Creatinine Ratio 16.1 Glucose 133 H Calcium 8.7 Magnesium 1.8 [facility] Medical History (Updated 02/24/24 @ 13:32 by Joni Perry MD) Chronic diastolic (congestive) heart failure Acute hypoxemic respiratory failure ISAURA (acute kidney injury) Obstructive sleep apnea Mixed hyperlipidemia Essential hypertension Chronic anticoagulation Chronic atrial fibrillation Social History household members: spouse Smoking Status: Never smoker Discharge Plan Discharge Plan Patient Disposition: Home Provider Discharge Comment: You were admitted to the hospital with heart failure exacerbation, improved after extra fluid was removed. No medication changes needed at this time, okay to resume previous torsemide dosing on discharge. Continue to follow daily weight and follow up with PCP or ultrasound sonographer ideally 1-2 weeks after discharge for ongoing treatments. Discharge orders & Medications Prescriptions: Continued losartan 50 mg tablet 50 mg PO BID atorvastatin 40 mg tablet 40 mg PO DAILY torsemide 20 mg tablet See Rx Instructions .ROUTE .COMPLEX Rx Instructions: 20mg on Sunday, Sunday, Sunday, & . 40mg on Sunday, Sunday, and Sunday. potassium chloride 10 mEq tablet extended release 10 meq PO 4XD atenolol 50 mg tablet 50 mg PO DAILY spironolactone 50 mg tablet 25 mg PO DAILY dabigatran etexilate [Pradaxa] 150 mg capsule 150 mg PO BID Follow up/Referrals: Shelby Benítez MD [Primary Care Provider] - Discharge Health Status Multidrug resistant organism: MRSA Diet/Activity/Treatments Diet: Diet as Tolerated and Low-sodium Activity: As tolerated, no restrictions Visit Report/Discharge Packet Instructions: DI for Heart Failure Stand Alone Forms: Patient Portal/API, Stroke Signs & Symptoms Discharge Data Primary Care Provider: Shelby Benítez
--- NOTE | 2024-02-25 16:15 | CM.DPNOTE ---
DCP Note LEARNING SOLUTIONS SPECIALIST reviewed EMR. Per hospitalist in morning rounds, may dc if able to be weaned off oxygen. Hospitalist in afternoon reported pt medically cleared to dc. LEARNING SOLUTIONS SPECIALIST met with pt in room. Pt asked for a medical excuse form for work. LEARNING SOLUTIONS SPECIALIST completed form with hospitalist input/signature, gave to pt in room. Pt appreciative. Denies any other CM needs. P: home today. no identified barriers to safe dc home. CM team will follow as needed KJ Geller
== END 2024-02-25 16:58 | disposition home or self-care (01) | DRG 291 ==
LOC: ED 17:39 → AC 17:48 → ICU 18:13
PROVIDERS: Admitting Provider Internal Medicine; Emergency Provider Emergency Medicine; PCP Family Medicine; Referring Provider Emergency Medicine; Visit Provider Internal Medicine
DX: I13.0 Hypertensive heart and chronic kidney disease with heart failure and stage 1 through stage 4 chronic kidney disease, or unspecified chronic kidney disease (principal); I50.33 Acute on chronic diastolic (congestive) heart failure; J96.01 Acute respiratory failure with hypoxia; N17.9 Acute kidney failure, unspecified; I48.20 Chronic atrial fibrillation, unspecified; E78.2 Mixed hyperlipidemia; G47.33 Obstructive sleep apnea (adult) (pediatric); N18.30 Chronic kidney disease, stage 3 unspecified; Z79.01 Long term (current) use of anticoagulants
CPT/HCPCS: 36415; 71045; 80048; 80053; 83605; 83735; 83880; 84484; 85025; 85610; 87797; 93005; 93306; 94660; 94762; 96365; 99285; J1940